=== PATIENT | male | born 1980 | race Caucasian/White ===

== ENCOUNTER 2019-07-31 15:14 | Emergency (ER) | payer BC ==
[~2019-07-31] VITALS: Ht 167.6 cm; Wt 93.0 kg
[2019-07-31 17:07] LABS: ABSOLUTE NEUTROPHILS 5.9 thou/uL (1.4-8.2); BASOPHILS 0.6 % (0.0-2.0); EOSINOPHILS 1.8 % (0.0-3.0); HEMATOCRIT 45.5 % (42.0-52.0); HEMOGLOBIN 15.7 gm/dL (14.0-18.0); LYMPHOCYTES 24.8 % (24.0-44.0); MCHC 34.5 g/dL (28.0-37.0); MONOCYTES 8.7 % (1.0-8.0); PLATELET COUNT 165 thou/uL (150-400); POLYS 64.1 % (36.0-66.0); RBC 5.23 mil/uL (4.50-6.00); RDW 13.4 % (10.5-14.5); WBC 9.2 thou/uL (4.0-11.0)
[2019-07-31 17:16] LABS: CREATININE 1.2 mg/dL (0.7-1.3); POTASSIUM 3.8 mmol/L (3.5-5.1)
[2019-07-31 17:22] LABS: ALBUMIN 4.4 g/dL (3.4-5.0); TOTAL BILIRUBIN 0.4 mg/dL (<0.1-1.0); TOTAL PROTEIN 7.5 g/dL (6.4-8.2)
[2019-07-31] MEDS ORDERED: NORCO 5-325 TA1 EAC1 PO (17:55)
[2019-07-31] MEDS ORDERED: DOXYCYCLINE 10100 MG PO (17:55)
[2019-07-31 18:09] VITALS: BP 125/80
== END 2019-07-31 18:10 | disposition home or self-care (01) ==
LOC: ER 15:14
PROVIDERS: Physician Assistant
DX: H66.93 Otitis media, unspecified, bilateral (principal); J32.9 Chronic sinusitis, unspecified

== ENCOUNTER → 2020-02-27 | Outpatient (CLI) | payer BC ==
[~2020-02-27] MED LIST: DOXYCYCLINE 10100 MG PO; NORCO 5-325 TA1 EAC1 PO
== END ==
LOC: LAB 13:47
PROVIDERS: ATTEND Nurse Practitioner
DX: R50.9 Fever, unspecified (principal); R11.10 Vomiting, unspecified; R19.7 Diarrhea, unspecified; Z20.828 Contact with and (suspected) exposure to other viral communicable diseases

== ENCOUNTER → 2020-05-05 | Outpatient (CLI) | payer BC | LOC: ULTRA 08:23 | PROVIDERS: ATTEND Nurse Practitioner | DX: K76.0 Fatty (change of) liver, not elsewhere classified (principal); K80.80 Other cholelithiasis without obstruction ==

== ENCOUNTER → 2020-06-03 | Outpatient (CLI) | payer BC | LOC: LAB 09:43 | PROVIDERS: ATTEND Nurse Practitioner | DX: U07.1 COVID-19 (principal) ==